=== PATIENT | female | born 1965 | race Two or more races ===

== ENCOUNTER 2022-12-21 01:00 | Emergency (ER) | payer BC, OTHER ==
[~2022-12-21] VITALS: Ht 157.5 cm; Wt 57.6 kg
--- NOTE | 2022-12-21 01:17 | NUR ---
[id number] FROM HOME C/O DIARRHEA & WEAKNESS X1DAY. TOOK OZEMPIC YESTERDAY NO HX OF DM. PT A/OX4. TOLERATING R/A WELL WITH NO RESP DISTRESS. CONNECTED PT TO POX AND MONITOR. SAFETY MEASURES IN PLACE
--- NOTE | 2022-12-21 01:19 | NUR ---
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
[2022-12-21] MEDS ORDERED: ONDANSETRON HCL/PF 4 MG/2 ML VIAL ONE (01:29)
[2022-12-21] MEDS ORDERED: ONDANSETRON HCL/PF 4 MG/2 ML VIAL IV ONE (01:30)
[2022-12-21] MEDS ORDERED: IV NS 0.9% 1,000 ML IV ONE (01:30)
[2022-12-21 01:35] LABS: BASOPHILS # (AUTO) 0.1 K/uL (0.0-0.2); BASOPHILS % (AUTO) 0.5 % (0.0-2.0); EOSINOPHILS % (AUTO) 0.4 % (0.0-6.0); HEMATOCRIT 41 % (33-45); HEMOGLOBIN 13.5 g/dL (11.5-14.8); LYMPHOCYTES # (AUTO) 2.1 K/uL (0.8-4.8); MEAN CORPUSCULAR HGB CONC 33 g/dl (31.0-36.0); MEAN CORPUSCULAR VOLUME 87 fL (82-100); MONOCYTES # (AUTO) 0.5 K/uL (0.1-1.30); MONOCYTES % (AUTO) 3.9 % (2.0-12.0); NEUTROPHILS % (AUTO) 80.2 % (43.0-81.0); PLATELET COUNT (AUTO) 228 K/uL (150-450); RED BLOOD CELL COUNT(AUTO) 4.77 MIL/uL (4.0-5.2); WHITE BLOOD COUNT (AUTO) 13.8 K/uL (4.3-11.0)
--- NOTE | 2022-12-21 01:35 | NUR ---
Pt care continue as 1Liters 0.9NS IVF and zofran 4mg IVP given as ordered. Pt care continue.
[2022-12-21 01:49] LABS: CALCIUM, SERUM 9.8 mg/dL (8.5-10.1); CREATININE 0.9 mg/dL (0.6-1.3); POTASSIUM 4.4 mmol/L (3.5-5.1)
[2022-12-21] MEDS ORDERED: ONDA4TAB11 PO (02:36)
[2022-12-21] MEDS ORDERED: LOPE-83 PO (02:36)
--- NOTE | 2022-12-21 02:50 | NUR ---
Patient discharged to home in stable condition. Written and verbal after care instructions given. Patient verbalizes understanding of instruction. IV removed. Catheter intact and site benign. Pressure and 4x4 applied to site. No bleeding noted.
[2022-12-21 04:09] VITALS: BP 115/73
--- NOTE | 2022-12-21 05:28 | NUR ---
LATE NOTE IVF NS 1000MLS END TIME 233 Addendum: 12/30/22 at 0538 by PAOLO LATE NOTE IVF NS 1000MLS END TIME 12/21/22233
== END 2022-12-21 02:30 | disposition home or self-care (01) ==
LOC: ER 01:02
DX: R19.7 Diarrhea, unspecified (principal); E86.0 Dehydration
CPT/HCPCS: 99283; 96374; 96361; 85025; 80048; 36415; J2405; J7030